=== PATIENT | male | born 1980 | race Caucasian/White ===

== ENCOUNTER → 2023-05-31 | Day surgery (SDC) | payer BC ==
--- NOTE | 2023-05-31 12:17 | RAD REPORT ---
EXAM DESCRIPTION: US - Guided FNA Non Breast - 05/31/2023 10:32 am CLINICAL HISTORY: Thyroid nodule ICD E04.1 COMPARISON: Outside ultrasound report TECHNIQUE: Risks, benefits and alternatives of procedure explained to the patient and informed conse nt obtained. Skin and subcutaneous tissues anesthetized with lidocaine. Under sonographic guidance,six 25 gauge needle passes were obtained into the 1.5 centimeter nodule wi thin the right lobe of the thyroid gland. Specimens given to pathology. Patient experienced no immediate complication IMPRESSION: Fine-needle aspiration of a dominant nodule within right lobe of thyroid gland
== END ==
LOC: FNA 09:27
PROVIDERS: ATTEND Internal Medicine
PROC: 0GBH3ZX Excision of Right Thyroid Gland Lobe, Percutaneous Approach, Diagnostic (ICD-10-PCS; principal; 2023-05-31)
DX: E04.1 Nontoxic single thyroid nodule (principal)
CPT/HCPCS: 88162